=== PATIENT | female | born 1950 | race Caucasian/White ===

== ENCOUNTER 2022-06-06 04:51 | Emergency (ER) | payer MEDICARE ==
[2022-06-06] MEDS ORDERED: Sodium Chloride 0.9% 1,000 ML IV ONE (05:43)
[2022-06-06] MEDS ORDERED: Albuterol 0.083% 2.5 MG/3 ML Neb Soln NEB ONE (08:08)
[2022-06-06] MEDS: Albuterol/Ipratropium 3.0-0.5 MG/3 ML Neb Soln NEB PRN ×2 (09:00→09:24)
[2022-06-06] MEDS ORDERED: Albuterol/Ipratropium 3.0-0.5 MG/3 ML Neb Soln INH ONE (09:15)
[2022-07-05 14:38] LABS: ESTIMATED GFR 91 mL/min (>60)
[2022-07-05 14:39] LABS: CORONAVIRUS COVID-19 NAA POSITIVE (NEGATIVE)
== END 2022-06-06 12:31 ==
LOC: JD.ED 04:51
DX: U07.1 COVID-19 (principal)
CPT/HCPCS: 0241U; 36415; 71045; 71045-26; 80053; 81003; 83605; 85025; 86140; 87040; 94640; 96360; 96361; 99284-25; J7030; J7620-GY; M0222; Q0222

== ENCOUNTER 2023-12-15 10:15 | Emergency (ER) | payer MEDICARE, MEDICAID ==
[2023-12-15] MEDS: Diatrizoate Meglumine/Diatrizoate Sodium 37% 120 ML Bottle PEGTUBE ONE (14:07)
[2023-12-15] MEDS: Lidocaine 1% 10 ML MDV INJECT ONE (14:08)
== END 2023-12-15 14:04 | disposition home or self-care (01) ==
LOC: JD.ED 10:15
DX: K94.23 Gastrostomy malfunction (principal); Z93.1 Gastrostomy status
CPT/HCPCS: 43762; 74018; 74018-26; 99283-25; J3490; Q9963

== ENCOUNTER 2024-05-23 18:15 | Emergency (ER) | payer MEDICARE, MEDICAID | END 2024-05-23 19:49 | disposition left against medical advice (07) | LOC: JD.ED 18:15 | DX: Z53.21 Procedure and treatment not carried out due to patient leaving prior to being seen by health care provider (principal) ==

== ENCOUNTER 2024-07-28 01:43 | Emergency (ER) | payer MEDICARE, MEDICAID | END 2024-07-28 03:34 | disposition home or self-care (01) | LOC: JD.ED 01:43 | DX: S51.811A Laceration without foreign body of right forearm, initial encounter (principal); Z91.013 Allergy to seafood; Z88.5 Allergy status to narcotic agent; Z88.8 Allergy status to other drugs, medicaments and biological substances; Z88.0 Allergy status to penicillin; W01.0XXA Fall on same level from slipping, tripping and stumbling without subsequent striking against object, initial encounter | CPT/HCPCS: 12002; 99282 ==

== ENCOUNTER 2024-10-06 09:58 | Inpatient (IN) | payer MEDICARE, MEDICAID ==
[2024-10-06] MEDS: Albuterol/Ipratropium 3.0-0.5 MG/3 ML Neb Soln ONE (10:19)
[2024-10-06] MEDS: Albuterol/Ipratropium 3.0-0.5 MG/3 ML Neb Soln NEB ONE (10:23)
[2024-10-06] MEDS: Sodium Chloride 0.9% 10 ML Syringe FLUSH PRN (10:30)
[2024-10-06 10:41] LABS: BASOPHILS PERCENT AUTO 0.1 % (0.0-1.0); EOSINOPHILS ABSOLUTE AUTO 0.1 K/mm3 (0.0-0.4); EOSINOPHILS PERCENT AUTO 1.7 % (0.0-6.0); HEMATOCRIT 41.2 % (37.0-47.0); HEMOGLOBIN 13.5 gm/dl (12.0-16.0); IMMATURE GRAN ABSOLUTE AUTO 0.02 K/mm3 (0.00-0.05); IMMATURE GRAN PERCENT AUTO 0.3 % (0.0-0.4); LYMPHOCYTES ABSOLUTE AUTO 0.5 K/mm3 (1.0-4.8); LYMPHOCYTES PERCENT AUTO 6.5 % (24.0-44.0); MEAN CORPUSCULAR HEMOGLOBIN 33.6 pg (28.0-32.0); MEAN CORPUSCULAR HGB CONC 32.8 g/dl (32.0-36.0); MEAN CORPUSCULAR VOLUME 102.5 fl (83.0-99.0); MEAN PLATELET VOLUME 13.9 fl (9.4-12.3); MONOCYTES ABSOLUTE AUTO 0.4 K/mm3 (0.0-0.8); MONOCYTES PERCENT AUTO 4.6 % (0.0-8.0); NEUTROPHILS ABSOLUTE AUTO 6.6 K/mm3 (1.8-7.7); NEUTROPHILS PERCENT AUTO 86.8 % (41.0-71.0); PLATELET COUNT,PLT 64 K/mm3 (150-400); RED BLOOD CELL COUNT 4.02 M/mm3 (4.10-5.30); WHITE BLOOD CELL COUNT,WBC 7.64 K/mm3 (3.9-11.3)
[2024-10-06] MEDS: Ondansetron 4 MG/2 ML SDV IVPUSH ONE (10:42)
[2024-10-06] MEDS: LORazepam 2 MG/ML SDV IVPUSH ONE (10:44)
[2024-10-06 10:57] LABS: INR 1.04
[2024-10-06 11:07] LABS: LACTIC ACID 1.3 mmol/L (0.4-2.0)
[2024-10-06 11:11] LABS: A/G RATIO 0.8 (1-2); ALBUMIN 3.4 g/dl (3.4-5.0); ANION GAP 7.5 (5-15); BILIRUBIN TOTAL 0.6 mg/dL (0.2-1.0); BUN/CREATININE RATIO 32.5 (14-18); CALCIUM 8.7 mg/dL (8.5-10.1); CREATININE 0.8 mg/dL (0.55-1.02); EST CRCL DRUG DOSING (CG) 47.86 mL/min; MAGNESIUM 1.8 mg/dL (1.8-2.4); POTASSIUM,K 4.5 mEq/L (3.5-5.1); PROTEIN TOTAL,TP 7.5 g/dl (6.4-8.2)
[2024-10-06 11:27] LABS: SLIDE REVIEW ABNORMAL SMEAR
[2024-10-06] MEDS: Levofloxacin/Dextrose 5%-Water 750 MG in Premix Bag 1 BAG IV ONE (12:10)
[2024-10-06] MEDS ORDERED: Acetaminophen 325 MG Tab GTUBE PRN (12:52)
[2024-10-06] MEDS: Sodium Chloride 0.9% 500 ML IV ONE (13:47)
[2024-10-06] MEDS: Albuterol/Ipratropium 3.0-0.5 MG/3 ML Neb Soln NEB SCH (14:00)
[2024-10-06] MEDS: methylPREDNISolone Sodium Succinate 40 MG/1 ML SDV IVPUSH ONE (14:44)
[2024-10-06] MEDS: predniSONE 20 MG Tab GTUBE SCH (15:46)
[2024-10-06] MEDS: LORazepam 2 MG/ML SDV IVPUSH PRN (18:20)
[2024-10-06] MEDS: oxyCODONE 5 MG Tab PO PRN (20:45)
[2024-10-07] MEDS: Acetaminophen/Butalbital/Caffeine 325-50-40 MG Tab GTUBE PRN (02:40)
[2024-10-07 06:01] LABS: HEMATOCRIT 37.4 % (37.0-47.0); HEMOGLOBIN 12.2 gm/dl (12.0-16.0); MEAN CORPUSCULAR HEMOGLOBIN 33.5 pg (28.0-32.0); MEAN CORPUSCULAR HGB CONC 32.6 g/dl (32.0-36.0); MEAN CORPUSCULAR VOLUME 102.7 fl (83.0-99.0); PLATELET COUNT,PLT 56 K/mm3 (150-400); RED BLOOD CELL COUNT 3.64 M/mm3 (4.10-5.30); WHITE BLOOD CELL COUNT,WBC 9.33 K/mm3 (3.9-11.3)
[2024-10-07 06:24] LABS: A/G RATIO 0.7 (1-2); ALBUMIN 2.6 g/dl (3.4-5.0); ANION GAP 10.8 (5-15); BILIRUBIN TOTAL 0.6 mg/dL (0.2-1.0); BUN/CREATININE RATIO 31.4 (14-18); C-REACTIVE PROTEIN 7.57 mg/dL (<0.30); CALCIUM 8.1 mg/dL (8.5-10.1); CREATININE 0.7 mg/dL (0.55-1.02); EST CRCL DRUG DOSING (CG) 54.8 mL/min; POTASSIUM,K 3.8 mEq/L (3.5-5.1); PROTEIN TOTAL,TP 6.4 g/dl (6.4-8.2)
[2024-10-07] MEDS ORDERED: predniSONE 5 MG Tab GTUBE SCH (09:00)
[2024-10-07] MEDS: Levofloxacin/Dextrose 5%-Water 750 MG in Premix Bag 1 BAG IV SCH (12:26)
[2024-10-07] MEDS: Nystatin Crm 30 GM Tube TOP SCH (16:29)
[2024-10-07] MEDS: D5 1/2 NS w/ 20 mEq/L KCl 1,000 ML IV SCH (16:30)
[2024-10-08 04:44] LABS: HEMATOCRIT 37.8 % (37.0-47.0); HEMOGLOBIN 12.2 gm/dl (12.0-16.0); MEAN CORPUSCULAR HEMOGLOBIN 32.9 pg (28.0-32.0); MEAN CORPUSCULAR HGB CONC 32.3 g/dl (32.0-36.0); MEAN CORPUSCULAR VOLUME 101.9 fl (83.0-99.0); MEAN PLATELET VOLUME 13.9 fl (9.4-12.3); PLATELET COUNT,PLT 50 K/mm3 (150-400); RED BLOOD CELL COUNT 3.71 M/mm3 (4.10-5.30); WHITE BLOOD CELL COUNT,WBC 5.14 K/mm3 (3.9-11.3)
[2024-10-08 05:13] LABS: A/G RATIO 0.7 (1-2); ALBUMIN 2.6 g/dl (3.4-5.0); BILIRUBIN TOTAL 0.3 mg/dL (0.2-1.0); BUN/CREATININE RATIO 14.3 (14-18); C-REACTIVE PROTEIN 5.46 mg/dL (<0.30); CALCIUM 8.1 mg/dL (8.5-10.1); CREATININE 0.7 mg/dL (0.55-1.02); EST CRCL DRUG DOSING (CG) 54.8 mL/min; PROTEIN TOTAL,TP 6.4 g/dl (6.4-8.2)
[2024-10-08] MEDS: ALPRAZolam 0.25 MG Tab GTUBE SCH (06:37)
[2024-10-08] MEDS: FLUoxetine 10 MG Cap PO SCH (10:26)
[2024-10-08] MEDS: Ondansetron 4 MG/2 ML SDV IVPUSH PRN (14:10)
[2024-10-08] MEDS: ALPRAZolam 0.5 MG Tab GTUBE SCH (20:09)
[2024-10-09 04:24] LABS: HEMATOCRIT 41.9 % (37.0-47.0); HEMOGLOBIN 13.3 gm/dl (12.0-16.0); MEAN CORPUSCULAR HEMOGLOBIN 33.5 pg (28.0-32.0); MEAN CORPUSCULAR HGB CONC 31.7 g/dl (32.0-36.0); MEAN CORPUSCULAR VOLUME 105.5 fl (83.0-99.0); MEAN PLATELET VOLUME 13.5 fl (9.4-12.3); PLATELET COUNT,PLT 53 K/mm3 (150-400); RED BLOOD CELL COUNT 3.97 M/mm3 (4.10-5.30); WHITE BLOOD CELL COUNT,WBC 3.72 K/mm3 (3.9-11.3)
[2024-10-09 04:47] LABS: A/G RATIO 0.6 (1-2); ALBUMIN 2.6 g/dl (3.4-5.0); ANION GAP 7.7 (5-15); BILIRUBIN TOTAL 0.3 mg/dL (0.2-1.0); BUN/CREATININE RATIO 17.8 (14-18); C-REACTIVE PROTEIN 3.4 mg/dL (<0.30); CALCIUM 8.4 mg/dL (8.5-10.1); CREATININE 0.9 mg/dL (0.55-1.02); EST CRCL DRUG DOSING (CG) 43.59 mL/min; POTASSIUM,K 3.7 mEq/L (3.5-5.1); PROTEIN TOTAL,TP 6.7 g/dl (6.4-8.2)
[2024-10-09] MEDS: ALPRAZolam 0.25 MG Tab GTUBE SCH (08:48)
[2024-10-09] MEDS: Nystatin Susp 100,000 Unit/ML 5 ML UD Cup PO SCH (17:41)
[2024-10-10 04:42] LABS: HEMATOCRIT 40.6 % (37.0-47.0); HEMOGLOBIN 12.8 gm/dl (12.0-16.0); MEAN CORPUSCULAR HEMOGLOBIN 33.1 pg (28.0-32.0); MEAN CORPUSCULAR HGB CONC 31.5 g/dl (32.0-36.0); MEAN CORPUSCULAR VOLUME 104.9 fl (83.0-99.0); MEAN PLATELET VOLUME 13.9 fl (9.4-12.3); PLATELET COUNT,PLT 59 K/mm3 (150-400); RED BLOOD CELL COUNT 3.87 M/mm3 (4.10-5.30); WHITE BLOOD CELL COUNT,WBC 2.76 K/mm3 (3.9-11.3)
[2024-10-10 05:07] LABS: A/G RATIO 0.6 (1-2); ALBUMIN 2.5 g/dl (3.4-5.0); ANION GAP 8.8 (5-15); BILIRUBIN TOTAL 0.3 mg/dL (0.2-1.0); BUN/CREATININE RATIO 27.1 (14-18); C-REACTIVE PROTEIN 2.49 mg/dL (<0.30); CALCIUM 8.3 mg/dL (8.5-10.1); CREATININE 0.7 mg/dL (0.55-1.02); EST CRCL DRUG DOSING (CG) 55.39 mL/min; POTASSIUM,K 3.8 mEq/L (3.5-5.1); PROTEIN TOTAL,TP 6.4 g/dl (6.4-8.2)
[2024-10-11 04:53] LABS: HEMATOCRIT 38.8 % (37.0-47.0); HEMOGLOBIN 12.5 gm/dl (12.0-16.0); MEAN CORPUSCULAR HEMOGLOBIN 33.2 pg (28.0-32.0); MEAN CORPUSCULAR HGB CONC 32.2 g/dl (32.0-36.0); MEAN CORPUSCULAR VOLUME 103.2 fl (83.0-99.0); MEAN PLATELET VOLUME 13.6 fl (9.4-12.3); PLATELET COUNT,PLT 52 K/mm3 (150-400); RED BLOOD CELL COUNT 3.76 M/mm3 (4.10-5.30); WHITE BLOOD CELL COUNT,WBC 3.08 K/mm3 (3.9-11.3)
[2024-10-11 05:26] LABS: A/G RATIO 0.7 (1-2); ALBUMIN 2.4 g/dl (3.4-5.0); ANION GAP 8.1 (5-15); BILIRUBIN TOTAL 0.2 mg/dL (0.2-1.0); BUN/CREATININE RATIO 25.7 (14-18); C-REACTIVE PROTEIN 1.7 mg/dL (<0.30); CALCIUM 8.4 mg/dL (8.5-10.1); CREATININE 0.7 mg/dL (0.55-1.02); EST CRCL DRUG DOSING (CG) 56.19 mL/min; POTASSIUM,K 4.1 mEq/L (3.5-5.1); PROTEIN TOTAL,TP 6.1 g/dl (6.4-8.2)
== END 2024-10-11 14:20 | disposition home health service (06) | DRG 871 ==
LOC: JD.ED 09:58 → JD.MS 11:57
PROVIDERS: ADMIT Internal Medicine; ATTEND Student in an Organized Health Care Education/Training Program
DX: A41.9 Sepsis, unspecified organism (principal); R50.9 Fever, unspecified; R79.89 Other specified abnormal findings of blood chemistry; J18.9 Pneumonia, unspecified organism; J96.01 Acute respiratory failure with hypoxia; J45.41 Moderate persistent asthma with (acute) exacerbation; R64 Cachexia; Z68.1 Body mass index [BMI] 19.9 or less, adult; F41.9 Anxiety disorder, unspecified; R13.12 Dysphagia, oropharyngeal phase; Z66 Do not resuscitate; D69.6 Thrombocytopenia, unspecified; Z88.0 Allergy status to penicillin; Z88.1 Allergy status to other antibiotic agents; Z88.8 Allergy status to other drugs, medicaments and biological substances; Z91.013 Allergy to seafood; Z91.040 Latex allergy status; Z91.041 Radiographic dye allergy status; Z79.51 Long term (current) use of inhaled steroids; Z79.52 Long term (current) use of systemic steroids; Z79.899 Other long term (current) drug therapy; Z93.1 Gastrostomy status; Z99.81 Dependence on supplemental oxygen
CPT/HCPCS: 36415; 51798; 71045; 71045-26; 80053; 82947; 83605; 83735; 83880; 84484; 85025; 85027; 85610; 85730; 86140; 87040; 87428-QW; 92610-GN; 93005; 93010; 94640; 94761; 96374; 96375; 97110-GP; 97116-GP; 97161-GP; 97530-GP; 99285; 99285-25; A9270-GY; J1956; J2060; J2405; J3480; J7030; J7512; J7620-GY